=== PATIENT | male | born 1955 | race African-American/Black ===

== ENCOUNTER 2020-05-22 18:34 | Emergency (ER) | payer OTHER ==
--- NOTE | 2020-05-22 19:34 | ER Document Report ---
HPI - HPI Time Seen by Provider: 05/22/20 19:20 Pain Level: Denies Context: Patient is a 65-year-old male who presents to the emergency department with a nosebleed. Patient states that he has had on and off nosebleeding for the past few weeks. He is currently on aspirin. Denies any dizziness, lightheadedness, or syncope. Has history of hypertension and hyperlipidemia. - CONSTITUTIONAL Constitutional: DENIES: Fever, Chills - EENT Notes: Bleeding nose both nostrils, active on the right - NEURO Neurology: DENIES: Headache - CARDIOVASCULAR Cardiovascular: DENIES: Chest pain - RESPIRATORY Respiratory: DENIES: Trouble Breathing, Coughing - GASTROINTESTINAL Gastrointestinal: DENIES: Abdominal Pain, Black / Bloody Stools - MUSCULOSKELETAL Musculoskeletal: DENIES: Extremity pain - DERM Skin Color: Normal Skin Problems: None Past Medical History - General Information source: Patient - Social History Smoking Status: Former Smoker Chew tobacco use (# tins/day): No Frequency of alcohol use: None Drug Abuse: None Family History: Reviewed & Not Pertinent Patient has homicidal ideation: No - Past Medical History Cardiac Medical History: Reports: Hx Hypercholesterolemia, Hx Hypertension Vertical Provider Document - CONSTITUTIONAL Agree With Documented VS: Yes Exam Limitations: No Limitations General Appearance: No Apparent Distress - HEENT HEENT: Atraumatic, Normocephalic, PERRLA Notes: Epistaxis noted to right nostril - RESPIRATORY Respiratory: Breath Sounds Normal, No Respiratory Distress - CARDIOVASCULAR Cardiovascular: Regular Rate, Regular Rhythm Pulses: Normal: Radial - MUSCULOSKELETAL/EXTREMETIES Musculoskeletal/Extremeties: FROM - NEURO Level of Consciousness: Awake, Alert, Appropriate Motor/Sensory: No Motor Deficit, No Sensory Deficit Course - Re-evaluation Re-evalutation: 05/22/20 19:38 Patient did have active bleeding noted. I had the patient blow his nose and a large clot came out of his right nostril. Silver nitrate was used to cauterize bleeding. Patient asked if the other side could be done. This was done. Will reassess the patient. 05/22/20 21:16 Reevaluated the patient. There is no bleeding noted. Patient is able to breathe normally. Patient expressed gratefulness for care. Advised him to follow-up with ENT if he continues to have nosebleeding. Follow-up precautions were given. Verbal discharge instructions were given to the patient. They verbalized understanding. They are stable for discharge. - Vital Signs Vital signs: Temp Pulse Resp BP Pulse Ox 98.3 F 88 16 154/97 H 97 05/22/20 18:44 05/22/20 18:44 05/22/20 18:44 05/22/20 18:44 05/22/20 18:44 Procedures - Nosebleed Procedure Bilateral Location: Anterior, Posterior Supplies used: Other - Silver nitrate cautery Discharge - Discharge Clinical Impression: Epistaxis Condition: Stable Disposition: HOME, SELF-CARE Additional Instructions: You are seen today in the emergency department for a nosebleed, called for epistaxis. The bleeding was controlled using silver nitrate. Please do not blow your nose vigorously. Try your best to breathe mainly through your mouth. Follow-up with ear, nose, and throat if you continue to have problems with bleeding. Referrals: KADEN ELLIOTT MD [NO LOCAL MD] - Follow up as needed TENNILLE PURCELL MD [ACTIVE STAFF] - Follow up as needed
[2020-05-22 21:49] VITALS: BP 135/84
== END 2020-05-22 21:48 | disposition home or self-care (01) ==
LOC: ER 18:34
DX: R04.0 Epistaxis (principal); E78.00 Pure hypercholesterolemia, unspecified; I10 Essential (primary) hypertension; Z79.82 Long term (current) use of aspirin
CPT/HCPCS: 99283